=== PATIENT | male | born 1995 | race Caucasian/White ===

== ENCOUNTER 2023-09-01 17:57 | Emergency (ER) | payer OTHER ==
[~2023-09-01] VITALS: Ht 180.3 cm; Wt 63.5 kg
[~2023-09-01 17:57] MED LIST: ASPI81EC PO; HYDACE5 PO; IBUP600 PO; SENNP PO
[2023-09-01] MEDS ORDERED: Ibuprofen 600 MG Tab PO ONE (18:20)
== END 2023-09-01 19:37 | disposition home or self-care (01) ==
LOC: ER 17:57
DX: S50.12XA Contusion of left forearm, initial encounter (principal); S20.219A Contusion of unspecified front wall of thorax, initial encounter; V89.2XXA Person injured in unspecified motor-vehicle accident, traffic, initial encounter
CPT/HCPCS: 71046; 73090; 99284-25; A9270